=== PATIENT | female | born 1995 | race Caucasian/White ===

== ENCOUNTER → 2021-10-11 | Outpatient (CLI) | payer OTHER, BC ==
[2021-10-11 13:23] LABS: HEMATOCRIT 39.5 % (36.0-47.0); HEMOGLOBIN 13.4 g/dl (12.0-15.5); MEAN CORPUSCULAR HEMOGLOBIN 29.7 pg (27.0-33.0); MEAN CORPUSCULAR HGB CONC 33.9 g/dl (32.0-36.5); MEAN CORPUSCULAR VOLUME 87.6 fl (80.0-96.0); PLATELET COUNT, AUTOMATED 241 10^3/uL (150-450); RED BLOOD COUNT 4.51 10^6/uL (4.00-5.40); WHITE BLOOD COUNT 8.3 10^3/uL (4.0-10.0)
[2021-10-11 14:45] LABS: HEPATITIS C VIRUS ABY INDEX 0.1 INDEX (<0.8); HIV 1&2 SCREEN CENTAUR NEGATIVE (NEGATIVE)
[2021-10-11 15:44] LABS: GC DNA AMPLIFICATION NEGATIVE (NEGATIVE)
== END ==
LOC: M PLALAB 09:09
PROVIDERS: ATTEND Specialist
DX: Z34.81 Encounter for supervision of other normal pregnancy, first trimester (principal); Z36.89 Encounter for other specified antenatal screening

== ENCOUNTER → 2021-12-13 | Outpatient (CLI) | payer BC, OTHER | LOC: M WHC 07:36 | PROVIDERS: ATTEND Obstetrics & Gynecology | DX: Z36.89 Encounter for other specified antenatal screening (principal); Z3A.20 20 weeks gestation of pregnancy ==

== ENCOUNTER → 2021-12-27 | Outpatient (CLI) | payer BC, OTHER | LOC: M WHC 07:35 | PROVIDERS: ATTEND Obstetrics & Gynecology | DX: Z36.2 Encounter for other antenatal screening follow-up (principal); Z3A.23 23 weeks gestation of pregnancy ==

== ENCOUNTER → 2022-04-01 | Outpatient (REF) | payer OTHER, BC | LOC: M SFHCWAGY 13:17 | PROVIDERS: ATTEND Obstetrics & Gynecology | DX: Z36.85 Encounter for antenatal screening for Streptococcus B (principal) ==

== ENCOUNTER 2022-04-27 13:13 | Inpatient (IN) | payer BC, OTHER ==
[~2022-04-27] VITALS: Ht 162.6 cm; Wt 129.2 kg
[2022-04-27] MEDS ORDERED: PRENTAB9 PO (13:32)
[2022-04-27] MEDS ORDERED: LEXA1TAB PO (13:32)
[2022-04-27 13:36] VITALS: BP 126/72
[2022-04-27] MEDS ORDERED: HOME MED LIST COMPLETE! XX SCH (15:30)
[2022-04-27] MEDS ORDERED: CARBOPROST TROMETHAMINE 250 MCG/ML AMP IM PRN (15:35)
[2022-04-27] MEDS ORDERED: LACTATED RINGER'S 1000 ML IV STA (15:35)
[2022-04-27] MEDS ORDERED: METHYLERGONOVINE MALEATE 0.2 MG/ML VIAL (J2210) IM PRN (15:35)
[2022-04-27] MEDS ORDERED: TRANEXAMIC ACID INJection 1,000 MG in NS 100 ML IV PRN (15:35)
[2022-04-27] MEDS ORDERED: OXYTOCIN DRIP 30 UNITS in IV 1 EA IV PRN ×4 (15:35)
[2022-04-27] MEDS ORDERED: OXYTOCIN INJ 10 UNITS/ML VIAL (J2590) IM PRN (15:35)
[2022-04-27] MEDS ORDERED: BICITRA 30ML SOLN UDC PO ONE (15:35)
[2022-04-27] MEDS ORDERED: CLINDAMYCIN 900 MG in IV 1 EA IV ONE (16:00)
[2022-04-27 16:33] LABS: HEMATOCRIT 39.5 % (36.0-47.0); HEMOGLOBIN 13.3 g/dl (12.0-15.5); MEAN CORPUSCULAR HEMOGLOBIN 30.1 pg (27.0-33.0); MEAN CORPUSCULAR HGB CONC 33.7 g/dl (32.0-36.5); MEAN CORPUSCULAR VOLUME 89.4 fl (80.0-96.0); PLATELET COUNT, AUTOMATED 213 10^3/uL (150-450); RED BLOOD COUNT 4.42 10^6/uL (4.00-5.40); WHITE BLOOD COUNT 13.6 10^3/uL (4.0-10.0)
[2022-04-27 16:38] VITALS: BP 129/93
[2022-04-27] MEDS ORDERED: GENTAMICIN 400 MG in D5W 100 ML IV ONE (17:00)
[2022-04-27 18:13] VITALS: BP 123/72
[2022-04-27] MEDS ORDERED: MORPHINE PRES-FREE INJ 10 MG/10 ML VIAL As Ordered ONE (19:43)
[2022-04-27] MEDS ORDERED: OXYTOCIN INJ 10 UNITS/ML VIAL (J2590) As Ordered ONE (19:44)
[2022-04-27] MEDS ORDERED: OXYTOCIN 30 UNITS IN 0.9% NaCl 500ML IV BAG (J2590) As Ordered ONE ×2 (19:44→21:12)
[2022-04-27] MEDS ORDERED: METOCLOPRAMIDE INJ 10MG/2ML VIAL (J2765 PER 1) As Ordered ONE (20:21)
[2022-04-27] MEDS ORDERED: ONDANSETRON 4MG/2ML VIAL As Ordered ONE (20:21)
[2022-04-27] MEDS ORDERED: dexameTHASONE 4 MG/ML 1ML VIAL (J1100 PER 1MG) As Ordered ONE (20:21)
[2022-04-27] MEDS ORDERED: PHENYLephrine 500MCG 5ML (100MCG/ML) SYRINGE As Ordered ONE (20:34)
[2022-04-27] MEDS ORDERED: KETOROLAC 60MG 2ML VIAL As Ordered ONE (20:47)
[2022-04-27] MEDS ORDERED: ONDANSETRON 4MG/2ML VIAL IV PRN ×3 (21:00→21:05)
[2022-04-27] MEDS ORDERED: RHOGAM 300 MCG (1500 IU) INJ (J2790) IM SCH (21:00)
[2022-04-27] MEDS ORDERED: PERCOCET 5MG/325MG TAB PO PRN ×2 (21:00)
[2022-04-27] MEDS ORDERED: DOCUSATE SODIUM 100MG CAPSULE PO PRN (21:00)
[2022-04-27] MEDS ORDERED: LR 1,000 ML IV SCH ×2 (21:00→21:05)
[2022-04-27] MEDS ORDERED: OXYTOCIN DRIP 30 UNITS in IV 1 EA IV SCH (21:00)
[2022-04-27] MEDS ORDERED: fentaNYL 100 MCG/2 ML INJECTION IV PRN (21:05)
[2022-04-27] MEDS ORDERED: MEPERIDINE INJ 25 MG/ML VIAL (J2175) IV PRN (21:05)
[2022-04-27] MEDS ORDERED: diphenhydrAMINE 50MG/ML VIAL (J1200) IV PRN (21:05)
[2022-04-27] MEDS ORDERED: **NOTE PATIENT COMMENT** MISC XX SCH (21:05)
[2022-04-27] MEDS ORDERED: NALOXONE INJ 0.4MG/1ML VIAL (J2310 PER 1MG) IV PRN ×2 (21:05)
[2022-04-27] MEDS ORDERED: METOCLOPRAMIDE INJ 10MG/2ML VIAL (J2765 PER 1) IV PRN (21:05)
[2022-04-27] MEDS ORDERED: SLF 3 ML SYR IV SCH (21:05)
[2022-04-27] MEDS ORDERED: OXYC1TAB23 PO (21:06)
[2022-04-27] MEDS ORDERED: IBUP80TA PO (21:06)
[2022-04-27 22:25] VITALS: BP 130/73
[2022-04-27 23:05] VITALS: BP 126/63
[2022-04-27 23:35] VITALS: BP 137/65
[2022-04-28] VITALS (7 sets, daily range): BP systolic 107–137; BP diastolic 57–68
[2022-04-28] MEDS: KETOROLAC 30 MG/ML 1ML VIAL IV SCH ×3 (03:01→15:36)
[2022-04-28 07:33] LABS: HEMATOCRIT 34.3 % (36.0-47.0); MEAN CORPUSCULAR HEMOGLOBIN 29.4 pg (27.0-33.0); MEAN CORPUSCULAR HGB CONC 32.7 g/dl (32.0-36.5); PLATELET COUNT, AUTOMATED 195 10^3/uL (150-450); RED BLOOD COUNT 3.81 10^6/uL (4.00-5.40); WHITE BLOOD COUNT 20.2 10^3/uL (4.0-10.0)
[2022-04-28 07:40] LABS: HEMOGLOBIN 11.2 g/dl (12.0-15.5)
[2022-04-28] MEDS: SIMETHICONE 80MG CHEW TAB PO PRN (08:35)
[2022-04-28] MEDS: PRENATAL VITAMINS CHEWABLE TABLET PO SCH (08:35)
[2022-04-28] MEDS: IBUPROFEN 800 MG TAB PO SCH (23:01)
[2022-04-29 02:00] VITALS: BP 127/60
[2022-04-29 06:00] VITALS: BP 114/77
[2022-04-29] MEDS: IBUPROFEN 800 MG TAB PO SCH (06:45)
[2022-04-29] MEDS: SIMETHICONE 80MG CHEW TAB PO PRN (08:18)
[2022-04-29] MEDS: PRENATAL VITAMINS CHEWABLE TABLET PO SCH (08:18)
[2022-04-29] MEDS ORDERED: MEASLES,MUMPS,RUBELLA VACCINE INJ (MMR-II) (90707) SC ONE (09:00)
[2022-04-29 10:00] VITALS: BP 142/85
[2022-04-29] MEDS ORDERED: COLA100C5 PO (10:21)
== END 2022-04-29 10:50 | disposition home or self-care (01) | DRG 540 ==
LOC: M LDO 13:13 → M LDI 15:14 → M OBS 22:20
PROVIDERS: ADMIT Advanced Practice Midwife; ATTEND Advanced Practice Midwife
PROC: 10D00Z1 Extraction of Products of Conception, Low, Open Approach (ICD-10-PCS; principal; 2022-04-27 19:30)
DX: O34.211 Maternal care for low transverse scar from previous cesarean delivery (principal); E66.9 Obesity, unspecified; O99.214 Obesity complicating childbirth; Z37.0 Single live birth; Z3A.40 40 weeks gestation of pregnancy